=== PATIENT | male | born 1950 ===

== ENCOUNTER 2024-09-11 07:29 | Day surgery (SDC) | payer MEDICARE ==
[2024-09-11] VITALS (16 sets, daily range): BP systolic 128–188; BP diastolic 71–100
[~2024-09-11] VITALS: Ht 182.9 cm; Wt 80.6 kg
[~2024-09-11 07:29] MED LIST: Lactated Ringer's 1,000 ML IV SCH; MULVITA PO; St. John's Wor300 M1 PO; Vitamin D1000 UNI1
--- NOTE | 2024-09-11 08:13 | NUR ---
History, Chart, Medications and Allergies reviewed before start of procedure. Lungs clear T/O to Auscultation. Patient states colon prep results BROWN WITH SEDIMENT Pre-Op teaching done. Pt verbalizes understanding. Patient confirms NPO status and agrees with scheduled surgery.
[2024-09-11] MEDS ORDERED: propofoL 40 ML IV ONE (08:26)
--- NOTE | 2024-09-11 08:45 | NUR ---
09/11/24 0801 Andrew Arce CONFIRMED AND REVIEWED H&P, MEDCICATIONS, ALLERGIES, MEDICAL HISTORY, RESPIRATORY HISTORY, VITAL SIGNS, 3-LEAD EKG, CONSENTS, AND PHYSICIAN ORDERS. PATIENT CONFIRMS NPO STATUS AND AGREES WITH SCHEDULED PROCEDURE. MONITOR INTACT WITH CONTINUOUS PULSE OXIMETRY, CAPNOGRAPHY, 3-LEAD EKG, INTERMITTENT BP. SUPPLEMENTAL O2 TO BE TITRATED THROUGHOUT PROCEDURE TO MAINTAIN O2 SATURATION ABOVE 90%. PATIENT DETERMINED TO BE ASA APPROPRIATE FOR PROPOFOL SEDATION PRIOR TO START OF PROCEDURE BY DR. DAVIS.
--- NOTE | 2024-09-11 09:27 | NUR ---
Discharge instructions reviewed with patient. Patient verbalizes understanding. Copy given to patient to take home. Patient States Post-Procedure ride home has been arranged. Discharged via wheelchair to private car for ride home.
== END 2024-09-11 09:35 | disposition home or self-care (01) ==
LOC: ORSCMMR 07:29 → ORD 08:30 → ORSCMMR 09:35
PROVIDERS: Internal Medicine Gastroenterology
PROC: 0DJD8ZZ Inspection of Lower Intestinal Tract, Via Natural or Artificial Opening Endoscopic (ICD-10-PCS; principal; 2024-09-11 08:30)
DX: Z12.11 Encounter for screening for malignant neoplasm of colon (principal); K57.30 Diverticulosis of large intestine without perforation or abscess without bleeding
CPT/HCPCS: J2704; J7120